=== PATIENT | male | born 1960 | race Caucasian/White ===

== ENCOUNTER 2018-01-12 06:39 | Emergency (ER) | payer BC ==
--- NOTE | 2018-01-12 07:28 | ED ---
Skin Complaint - HPI Summary HPI Summary: Pt is a 57 year old M presenting to the ED with a chief complaint of a rash onset about 1 week ago that felt like a sunburn before the rash formed. The pt reports the rash on his inner R thigh, where he usually gets single boils, but these are multiple small bumps. The pt has no recollection of being bitten by any insect or animal. The pt denies fever, abd pain, nausea, vomiting, or any severe pain in the area unless something rubs against it. The pt has a hx of HTN , HLD, and DM controlled by diet. - History of Current Complaint Chief Complaint: EDRashSkinAbscess Time Seen by Provider: 01/12/18 07:16 Stated Complaint: RASH Hx Obtained From: Patient Onset/Duration: Started Days Ago, Still Present Skin Exposure Onset/Duration: Days Ago Timing: Constant Onset Severity: Moderate Current Severity: Moderate Pain Intensity: 4 Pain Scale Used: 0-10 Numeric Skin Location: Other: - R inner thigh Character: Redness, Painful - to touch Aggravating Symptom(s): Touch Alleviating Symptom(s): Nothing Associated Signs & Symptoms: Negative - nausea, vomiting, fever, abd pain, excess pain to rash, Rash - Allergy/Home Medications Allergies/Adverse Reactions: Allergies Allergy/AdvReac Type Severity Reaction Status Date / Time No Known Allergies Allergy Verified 01/12/18 06:50 PMH/Surg Hx/FS Hx/Imm Hx Previously Healthy: No Endocrine/Hematology History: Reports: Hx Diabetes Cardiovascular History: Reports: Hx Hypercholesterolemia, Hx Hypertension Infectious Disease History: No Infectious Disease History: Denies: Traveled Outside the [place] in Last 30 Days - Family History Known Family History: Positive: Hypertension - mother, Diabetes - father - Social History Alcohol Use: Weekly - "casual drinker" Smoking Status (MU): Never Smoked Tobacco Review of Systems Negative: Fever Negative: Abdominal Pain, Vomiting, Nausea Positive: Rash - R inner thigh All Other Systems Reviewed And Are Negative: Yes Physical Exam - Summary Physical Exam Summary: Appearance: Well-appearing, Well-nourished, lying in bed comfortable Skin: Warm, dry, Grouped vesicles in R inner thigh without sign of abscess or bacterial cellulitis Eyes: sclera anicteric, no conjunctival pallor ENT: mucous membranes moist Neck: deferred Respiratory: No signs of respiratory distress Cardiovascular: Appears well perfused, pulses are nml Abdomen: deferred Musculoskeletal: Moving all 4 extremities without obvious discomfort Neurological: Awake and alert, mentation is normal, speech is fluent and appropriate Psychiatric: affect is normal, does not appear anxious or depressed Triage Information Reviewed: Yes Vital Signs On Initial Exam: Initial Vitals Temp Pulse Resp BP Pulse Ox 97.7 F 71 18 152/65 97 01/12/18 06:47 01/12/18 06:47 01/12/18 06:47 01/12/18 06:47 01/12/18 06:47 Vital Signs Reviewed: Yes Diagnostics - Vital Signs Vital Signs Temp Pulse Resp BP Pulse Ox 01/12/18 06:47 97.7 F 71 18 152/65 97 - Laboratory Lab Statement: Any lab studies that have been ordered have been reviewed, and results considered in the medical decision making process. Course/Dx - Course Course Of Treatment: Pt is a 57 year old M presenting with a rash on his inner R thigh onset 1 wk ago that initially felt like sunburn and now has small bumps. Pt has hx of singular boils in the area that he gets when he is stressed. These lesions appear to be vesicular in a grouped distribution. There are no other rashes in this dermatomal distribution, but the appearance is suggestive of zoster. He is weakened to this and was mainly concerned about the possibility of bacterial sialitis or abscess, which certainly this does not appear to be. I suspect that this will likely heal over the next couple of weeks, but he understands he will need to come back if he starts getting significantly increased pain or swelling in the area. - Diagnoses Provider Diagnoses: Herpes zoster Discharge - Sign-Out/Discharge Documenting (check all that apply): Patient Departure - Discharge Plan Condition: Stable Disposition: HOME Patient Education Materials: Shingles (ED) Referrals: Jourdan Kong MD [Medical Doctor] - Additional Instructions: Unilateral grouped vesicles like this are suggestive of shingles. If so, I would expect these to start healing over the next few days to weeks. If the rash starts to progress or change significantly, I would recommend consulting a local cleaning attendant. Sometimes a biopsy or other testing is needed to make a firm diagnosis. - Billing Disposition and Condition Condition: STABLE Disposition: Home - Attestation Statements Document Initiated by Scribe: Yes Documenting Scribe: Nilsa Barone Provider For Whom Scribe is Documenting (Include Credential): iBnh Cardoso MD. Scribe Attestation: Nilsa Ocampo, scribed for Binh Cardoso MD. on 01/12/18 at 1051. Scribe Documentation Reviewed: Yes Provider Attestation: The documentation as recorded by the scribe, Nilsa Barone accurately reflects the service I personally performed and the decisions made by me, Binh Cardoso MD.
[2018-01-12 07:52] VITALS: BP 151/84
== END 2018-01-12 07:51 | disposition home or self-care (01) ==
LOC: ED 06:39
DX: B02.9 Zoster without complications (principal); E11.9 Type 2 diabetes mellitus without complications; E78.00 Pure hypercholesterolemia, unspecified; I10 Essential (primary) hypertension; E78.5 Hyperlipidemia, unspecified
CPT/HCPCS: 99282

== ENCOUNTER 2018-06-06 19:25 | Emergency (ER) | payer BC ==
--- NOTE | 2018-06-06 19:45 | UC ---
Skin Complaint HPI - HPI Summary HPI Summary: 57-year-old male comes in with a chief complaint of swelling in the right hand. 4 days ago he scraped his right second and third fingers on a cinderblock. He got abrasion. Since that time on the dorsum of the second finger in the proximal phalanx where the abrasion was has gotten red and swollen and hot to touch. He has gotten some pus out of it. There is redness around that area he is able to move his fingers with full range of motion and full strength no sensation deficit. No fevers or chills. The redness spreads to the mid metacarpal it does not extend to the wrist. No history of MRSA. - History of Current Complaint Time Seen by Provider: 06/06/18 19:36 Stated Complaint: SORE ON RED SWOLLEN HAND - Allergy/Home Medications Allergies/Adverse Reactions: Allergies Allergy/AdvReac Type Severity Reaction Status Date / Time No Known Allergies Allergy Verified 01/12/18 06:50 PMH/Surg Hx/FS Hx/Imm Hx Previously Healthy: Yes Endocrine History: Dyslipidemia Cardiovascular History: Hypertension - Family History Known Family History: Positive: Hypertension - mother, Diabetes - father - Social History Alcohol Use: Weekly - "casual drinker" Substance Use Type: None Smoking Status (MU): Never Smoked Tobacco Review of Systems All Other Systems Reviewed And Are Negative: Yes Constitutional: Positive: Negative Skin: Positive: Other - SEE HPI Eyes: Positive: Negative ENT: Positive: Negative Respiratory: Positive: Negative Cardiovascular: Positive: Negative Gastrointestinal: Positive: Negative Motor: Positive: Negative Neurovascular: Positive: Negative Musculoskeletal: Positive: Negative Neurological: Positive: Negative Psychological: Positive: Negative Is Patient Immunocompromised?: No Physical Exam Triage Information Reviewed: Yes Appearance: Well-Appearing, No Pain Distress, Well-Nourished Vital Signs Reviewed: Yes Eye Exam: Normal Eyes: Positive: Conjunctiva Clear Neck exam: Normal Neck: Positive: Supple Respiratory: Positive: No respiratory distress Musculoskeletal Exam: Normal Musculoskeletal: Positive: Strength Intact, ROM Intact Neurological Exam: Normal Neurological: Positive: Alert, Muscle Tone Normal Psychological Exam: Normal Psychological: Positive: Age Appropriate Behavior Skin: Positive: Other - On the right index finger dorsum proximal phalanx there is some swelling with a 4 mm open area with clear drainage. There is erythema surrounding this extending to the PIP and to the distal second metacarpal. Fingers have full range of motion. Strength is 5 out of 5 normal sensation normal capillary refill. No streaking. Course/Dx - Course Course Of Treatment: I discussed with the patient to follow-up with orthopedics hands if not completely improved. As this is Saturday I let him know that over the weekend if worse and that he started getting spread of infection he should go the emergency department for further evaluation and care. - Diagnoses Provider Diagnosis: Cellulitis of right hand Discharge - Sign-Out/Discharge Documenting (check all that apply): Patient Departure All imaging exams completed and their final reports reviewed: No Studies - Discharge Plan Condition: Stable Disposition: HOME Prescriptions: Cephalexin CAP* [Keflex CAP*] 500 mg PO QID #40 cap Mupirocin 1 applic TOPICAL BID #22 gm Patient Education Materials: Cellulitis (ED) Referrals: Meg Breaux MD [Primary Care Provider] - Stacey Mayes MD [Medical Doctor] - Additional Instructions: FOLLOW UP WITH THE ORTHOPEDIC HANDS SPECIALIST IF NOT COMPLETELY IMPROVED. GO TO THE EMERGENCY DEPARTMENT IF YOUR CONDITION WORSENS; SPREAD OF INFECTION OR ANY QUESTIONS OR CONCERNS. - Billing Disposition and Condition Condition: STABLE Disposition: Home
[2018-06-06 19:46] VITALS: BP 150/87
[2018-06-06] MEDS ORDERED: Mupirocin 2% OINT* TUBE TOPICAL ONE (19:57)
== END 2018-06-06 20:09 | disposition home or self-care (01) ==
LOC: UCEAST 19:25
DX: L03.113 Cellulitis of right upper limb (principal); I10 Essential (primary) hypertension; E78.5 Hyperlipidemia, unspecified
CPT/HCPCS: 99212; G0463

== ENCOUNTER 2019-01-03 07:41 | Emergency (ER) | payer BC ==
[2019-01-03 07:49] VITALS: BP 171/61
--- NOTE | 2019-01-03 08:16 | UC ---
Eye Complaint HPI - HPI Summary HPI Summary: Patient is a 58-year-old male presenting with swelling and redness beneath left eye since yesterday afternoon. Patient notes tenderness when squeezing his eyes shut tightly. Denies pain with normal eye movement. Denies vision changes. Denies itching. Denies fever, chills, nausea, vomiting. Denies right eye symptoms. Denies anything like this in the past. - History of Current Complaint Chief Complaint: UCEye Stated Complaint: L EYE COMP Hx Obtained From: Patient Onset/Duration: Gradual Onset Severity Initially: Mild Severity Currently: Mild Pain Intensity: 2 Pain Scale Used: 0-10 Numeric - Allergies/Home Medications Allergies/Adverse Reactions: Allergies Allergy/AdvReac Type Severity Reaction Status Date / Time No Known Allergies Allergy Verified 01/03/19 07:50 PMH/Surg Hx/FS Hx/Imm Hx Previously Healthy: Yes Cardiovascular History: Hypertension - Surgical History Surgical History: Yes Surgery Procedure, Year, and Place: appy - Family History Known Family History: Positive: Hypertension - mother, Diabetes - father - Social History Alcohol Use: Weekly Substance Use Type: None Smoking Status (MU): Never Smoked Tobacco Review of Systems All Other Systems Reviewed And Are Negative: Yes Constitutional: Positive: Negative. Negative: Fever, Chills Skin: Positive: Rash Eyes: Negative: Blurred Vision, Diplopia, Drainage, Eye Redness, Photophobia ENT: Positive: Negative Respiratory: Positive: Negative Cardiovascular: Positive: Negative Gastrointestinal: Positive: Negative. Negative: Vomiting, Nausea Musculoskeletal: Positive: Negative Neurological: Positive: Negative. Negative: Headache Physical Exam Triage Information Reviewed: Yes Appearance: Well-Appearing, No Pain Distress, Well-Nourished Vital Signs: Initial Vital Signs Temp 97.3 F 01/03/19 07:47 Pulse 62 01/03/19 07:47 Resp 16 01/03/19 07:47 BP 171/61 01/03/19 07:47 Pulse Ox 100 01/03/19 07:47 Vital Signs Reviewed: Yes Eyes: Positive: Conjunctiva Clear, Other: - PERRLA. EOM intact ENT: Positive: Hearing grossly normal, Pharynx normal, TMs normal Neck exam: Normal Neck: Positive: Supple, Nontender, No Lymphadenopathy Respiratory Exam: Normal Respiratory: Positive: Lungs clear, Normal breath sounds, No respiratory distress Cardiovascular Exam: Normal Cardiovascular: Positive: RRR Neurological: Positive: Alert Psychological: Positive: Age Appropriate Behavior Skin: Positive: Other - erythema and edema noted of left lower eyelid. no drainage. no fluctuance. Eye Complaint Course/Dx - Course Course Of Treatment: Discussed preseptal cellulitis with patient. I treated with Augmentin. Instructed him to return or go to the ED if his symptoms worsen. Patient voiced understanding and agreed with the treatment plan. - Differential Dx/Diagnosis Provider Diagnosis: Preseptal cellulitis of left lower eyelid Discharge ED - Sign-Out/Discharge Documenting (check all that apply): Patient Departure All imaging exams completed and their final reports reviewed: No Studies - Discharge Plan Condition: Stable Disposition: HOME Prescriptions: Amoxicillin/Clavulanate TAB* [Augmentin TAB 875*] 875 mg PO BID #14 tab Patient Education Materials: Periorbital Cellulitis in Adults (ED) Referrals: Meg Breaux MD [Primary Care Provider] - If Needed Additional Instructions: As discussed, take bactrim as prescribed for the treatment of your periorbital cellulitis. Keep the area clean and dry. Follow up with your primary care physician as listed below if your symptoms persist. Go to the emergency room if you experience fever, vision changes, increasing pain, increasing redness and warmth to the area, drainage, or nausea and vomiting. - Billing Disposition and Condition Condition: STABLE Disposition: Home - Attestation Statements Provider Attestation: I was available for consult. This patient was seen by the BRYN. The patient was not presented to, seen by, or examined by me. -More
== END 2019-01-03 08:38 | disposition home or self-care (01) ==
LOC: UCEAST 07:41
DX: H00.035 Abscess of left lower eyelid (principal); I10 Essential (primary) hypertension
CPT/HCPCS: 99212; G0463